=== PATIENT | male | born 1960 | race Caucasian/White ===

== ENCOUNTER 2017-03-21 22:02 | Inpatient (IN) | payer OTHER ==
[~2017-03-21] VITALS: Ht 175.3 cm; Wt 158.8 kg
--- NOTE | ~2017-03-21 | 2DMMODE ---
[facility] [address] [place] [address] 2 D/M-MODE ECHOCARDIOGRAM Name: KITA BAKER Room #: 421-P ADM IN M.R.#: [id number] Admission: 03/22/17 Attend Phys: Mariusz Franklin Discharge: Date of : 64 Date of Service: 03/22/17 [facility] [place] [facility] [place] Report #: [id number] THIS REPORT FOR: //name// APPROVED REPORT Study performed: 03/22/2017 07:16:42 EXAM: Comprehensive 2D, Doppler, and color-flow Echocardiogram Patient Location: Bedside Room #: 421 Status: routine Other Information Study Quality: Adequate Indications Congestive Heart Failure Echo Enhancing Agent Indication: Endocardial border delineation Agent(s) / Amount(s) Used: Definity 2 cc 2D Dimensions LVEF(%): 58.26 (>50%) IVSd: 10.04 (7-11mm) LVOT Diam: 26.84 (18-24mm) LVDd: 53.67 mm PWd: 10.64 (7-11mm) Ascending Ao: 34.46 (22-36mm) LVDs: 37.01 (25-40mm) Aortic Root: 33.12 mm Mendes's LVEF: 58.26 % Aortic Valve AoV Peak Jose.: 1.56 m/s AO Peak Gr.: 9.77 mmHg LVOT Max P.11 mmHg LVOT Max V: 1.13 m/s DELIO Vmax: 4.09 cm2 Mitral Valve E/A Ratio: 1.3 MV Decel. Time: 228.47 ms MV E Max Jose.: 1.03 m/s MV A Jose.: 0.82 m/s MV PHT: 66.26 ms IVRT: 92.27 ms [facility] [place] [address] 2 D/M-MODE ECHOCARDIOGRAM Name: KITA BAKER Room #: 421-P [facility] IN ..#: [id number] Admission: 03/22/17 Attend Phys: Mariusz Franklin Discharge: Date of : 64 Date of Service: 03/22/17 [facility] [place] [facility] Report #: [id number] Pulmonary Valve PV Peak Jose.: 1.07 m/s PV Peak Gr.: 4.57 mmHg Pulmonary Vein P Vein S: 0.35 m/s P Vein A: 0.27 m/s P Vein D: 0.21 m/s P Vein A Dur.: 110.7 msec P Vein S/D Ratio: 1.67 Tricuspid Valve TR Peak Jose.: 2.78 m/s TR Peak Gr.: 30.91 mmHg Left Ventricle The left ventricle is normal size. Regional wall motion is not well visualized but grossly normal. There is normal left ventricular wall thickness. The left ventricular systolic function is normal. The left ventricular ejection fraction is within the normal range. LVEF is 55-60%. Right Ventricle The right ventricle is normal size. The right ventricular systolic function is normal. Atria The left atrium size is normal. The right atrium size is normal. Aortic Valve The aortic valve is grossly normal in structure. No aortic regurgitation is present. There is no aortic valvular stenosis. Mitral Valve The mitral valve is grossly normal in structure. There is no mitral valve regurgitation noted. No evidence of mitral valve stenosis. Tricuspid Valve The tricuspid valve is normal in structure. There is trace tricuspid regurgitation. The right atrial pressure is estimated at mmHg. There is mild pulmonary hypertension. The estimated PAP was 31 mmHg. Plus the right atrial pressure. Pulmonic Valve The pulmonary valve is normal in structure. There is no pulmonic valvular regurgitation. [facility] [address] [place] [address] 2 D/M-MODE ECHOCARDIOGRAM Name: KITA BAKER Room #: 421-P [facility] IN M.R.#: [id number] Admission: 03/22/17 Attend Phys: Mariusz Franklin Discharge: Date of : 64 Date of Service: 03/22/17 1007 Report #: [id number] Great Vessels The aortic root is normal in size. IVC is not well visualized. Pericardium There is no pericardial effusion. <Conclusion> Very limited study The left ventricular systolic function is normal. Regional wall motion is not well visualized but grossly normal. LVEF 55-60%. The aortic valve is grossly normal in structure. No aortic regurgitation or stenosis The mitral valve is grossly normal in structure. No mitral valve regurgitation noted. Pulmonary artery pressure could not be reliably ascertained There is no pericardial effusion. <ELECTRONICALLY SIGNED> By: Shawn Lang MD, FACC 03/22/17 1007 1007 1007 Shawn Lang MD, FACC /INF
--- NOTE | ~2017-03-21 | EKG ---
[address] [place] [address] ELECTROCARDIOGRAM REPORT Name: KITA BAKER Room #: 421-[facility] IN M.R.#: [id number] Admission: 03/22/17 Attend Phys: Mariusz Salgado Discharge: 03/24/17 Date of : 64 Report #: [id number] THIS REPORT FOR: //name// [facility] ED Test Date: 2017-03-21 Test Time: 22:27:42 Pat Name: KITA BAKER Department: Room: 421 Gender: M Stars Analytical Lead: [id number] : 1960 Requested By: Alyse Rodriguez Order Number: [id number] MD: Shawn Lang Measurements Intervals [place] Rate: 92 P: -9 MT: 143 QRS: 95 QRSD: 119 T: -1 QT: 382 QTc: 473 Interpretive Statements Sinus rhythm Nonspecific intraventricular conduction delay No previous ECG available for comparison Electronically Signed On 03-25-2017 12:55:07 CDT by Shawn Lang [email or web address] <ELECTRONICALLY SIGNED> By: Shawn Lang MD, [facility] 03/25/17 1255 D: [id number] 26 Shawn Lang MD, FAC /EPI
[2017-03-21 22:04] VITALS: BP 145/80
[2017-03-21] MEDS ORDERED: OTEZLA1 EAC1 PO (22:55)
[2017-03-21 22:56] LABS: HEMATOCRIT 38.5 % (42.0-52.0); HEMOGLOBIN 12.8 gm/dL (14.0-18.0); MCH 30.5 pg (26.0-34.0); MCHC 33.3 g/dL (28.0-37.0); MCV 91.7 fL (80.0-100.0); PLATELET COUNT 102 thou/uL (150-400); RDW 14.8 % (10.5-14.5); WBC 14.8 thou/uL (4.0-11.0)
[2017-03-21 22:58] LABS: MANUAL DIFF YES
[2017-03-21 23:05] LABS: ANION GAP 7 mmol/L (7-16); BUN 9 mg/dL (7-18); CALCIUM 9.1 mg/dL (8.5-10.1); CHLORIDE 99 mmol/L (98-107); CO2 26 mmol/L (21-32); CREATININE 1.1 mg/dL (0.7-1.3); GLUCOSE 107 mg/dL (74-106); POTASSIUM 4.5 mmol/L (3.5-5.1); SODIUM 132 mmol/L (136-145)
[2017-03-21 23:17] LABS: NT-PRO BRAIN NAT PEPTIDE 604 pg/mL (<300); TROPONIN-I < 0.04 ng/mL (<0.04-0.07)
[2017-03-21 23:40] LABS: ABSOLUTE NEUTROPHILS 12.7 thou/uL (1.4-8.2); PLATELET ESTIMATE NORMAL; TOTAL CELL COUNT 100
[2017-03-22 02:29] VITALS: BP 110/38
[2017-03-22 04:56] VITALS: BP 109/73
[2017-03-22 07:52] VITALS: BP 96/48
[2017-03-22 08:17] LABS: HEMATOCRIT 35.7 % (42.0-52.0); HEMOGLOBIN 11.7 gm/dL (14.0-18.0); MCH 30.6 pg (26.0-34.0); MCHC 32.8 g/dL (28.0-37.0); MCV 93.1 fL (80.0-100.0); RBC 3.83 mil/uL (4.50-6.00); RDW 15.1 % (10.5-14.5); WBC 13.2 thou/uL (4.0-11.0)
[2017-03-22 08:29] LABS: CALCIUM 8.8 mg/dL (8.5-10.1); CREATININE 1.1 mg/dL (0.7-1.3)
[2017-03-22 08:35] LABS: POTASSIUM 3.5 mmol/L (3.5-5.1)
[2017-03-22 15:38] VITALS: BP 86/40
[2017-03-22 20:00] VITALS: BP 110/66
[2017-03-23 04:00] VITALS: BP 96/45
[2017-03-23 07:33] VITALS: BP 97/62
[2017-03-23 15:10] VITALS: BP 108/50
[2017-03-23 20:00] VITALS: BP 105/59
[2017-03-24 04:00] VITALS: BP 111/61
[2017-03-24 05:11] LABS: ALBUMIN 2.2 g/dL (3.4-5.0); CALCIUM 8.2 mg/dL (8.5-10.1); CREATININE 1.1 mg/dL (0.7-1.3); POTASSIUM 3.6 mmol/L (3.5-5.1)
[2017-03-24 07:18] VITALS: BP 113/66
[2017-03-24] MEDS ORDERED: LASIX 40 MG TAB40 M2 PO (08:40)
[2017-03-24] MEDS ORDERED: KLOR-CON 1010 MEQ PO (08:40)
[2017-03-24] MEDS ORDERED: CEFUROXIME500 MG PO (08:41)
[2017-03-24 09:19] VITALS: BP 113/66
== END 2017-03-24 14:59 | disposition home or self-care (01) | DRG 603 ==
LOC: ER 22:02 → 4E 03-22 00:39 → EROBS 03-22 00:39 → 4E 03-22 02:34
PROVIDERS: Emergency Medicine; Hospitalist; Nurse Practitioner Family
DX: L03.115 Cellulitis of right lower limb (principal); E87.2 Acidosis; R60.1 Generalized edema; L40.9 Psoriasis, unspecified; I50.9 Heart failure, unspecified; F12.90 Cannabis use, unspecified, uncomplicated; F17.220 Nicotine dependence, chewing tobacco, uncomplicated; Z79.899 Other long term (current) drug therapy
CPT/HCPCS: 10084; 50455

== ENCOUNTER 2020-10-09 12:18 | Inpatient (IN) | payer OTHER ==
[~2020-10-09] VITALS: Ht 175.3 cm; Wt 189.6 kg
[~2020-10-09 12:18] MED LIST: CEFUROXIME500 MG PO; KLOR-CON 1010 MEQ PO; LASIX 40 MG TAB40 M2 PO; OTEZLA1 EAC1 PO
[2020-10-09 12:24] VITALS: BP 163/66
[2020-10-09 13:00] LABS: ABSOLUTE NEUTROPHILS 8.8 thou/uL (1.4-8.2); BASOPHILS 0.7 % (0.0-2.0); EOSINOPHILS 1.3 % (0.0-3.0); HEMATOCRIT 23.3 % (42.0-52.0); HEMOGLOBIN 7.1 gm/dL (14.0-18.0); LYMPHOCYTES 3.8 % (24.0-44.0); MCH 27.7 pg (26.0-34.0); MCHC 30.7 g/dL (28.0-37.0); MCV 90.3 fL (80.0-100.0); MONOCYTES 8.2 % (1.0-8.0); PLATELET COUNT 129 thou/uL (150-400); RBC 2.58 mil/uL (4.50-6.00); WBC 10.3 thou/uL (4.0-11.0)
[2020-10-09 13:14] LABS: CALCIUM 8.2 mg/dL (8.5-10.1); CREATININE 0.9 mg/dL (0.7-1.3); POTASSIUM 4.3 mmol/L (3.5-5.1)
[2020-10-09 13:20] LABS: ALBUMIN 2.6 g/dL (3.4-5.0); TOTAL PROTEIN 8.1 g/dL (6.4-8.2)
--- NOTE | 2020-10-09 14:58 | NUR ---
MOVED PT TO HOSPITAL BED FOR COMFORT.
[2020-10-09 16:30] LABS: HEMATOCRIT 20.3 % (42.0-52.0)
[2020-10-09 16:33] LABS: HEMOGLOBIN 6.2 gm/dL (14.0-18.0)
[2020-10-09 17:57] LABS: URINE BILIRUBIN NEGATIVE (Negative); URINE BLOOD NEGATIVE (Negative); URINE CLARITY CLEAR; URINE COLOR YELLOW; URINE GLUCOSE-RANDOM* NEGATIVE (Negative); URINE KETONES NEGATIVE (Negative); URINE LEUKOCYTES-REFLEX NEGATIVE (Negative); URINE NITRITE-REFLEX NEGATIVE (Negative); URINE PROTEIN (DIPSTICK) NEGATIVE (Negative); URINE SPECIFIC GRAVITY 1.015 (1.005-1.035); URINE UROBILINOGEN 0.2 E.U./dl (0.2-1.0)
[2020-10-09 18:00] VITALS: BP 115/79
--- NOTE | 2020-10-09 18:12 | NUR ---
PT ARRIVED TO ROOM
[2020-10-09 18:15] VITALS: BP 145/65
--- NOTE | 2020-10-09 21:05 | NUR ---
PT INFORMED PROVIDER AND GI DR WANT PT TO REMAIN NPO UNTIL FURTHER EVALUATION FOR POSSIBLE GI BLEED. BOTH PROVIDERS INFORMED PT HAD COLONOSCOPY SCHEDULED 10/22/20 AT [facility]. PT DENIES BLOODY STOOL OR N/V. PT REQUESTING TO EAT OR DRINK, PT INFORMED OF CONCERNS RE POTENTIAL ULCERS, PERFORATIONS. PT STATED HE IS GOING TO DRINK ANYWAY. PT HAS CONSENTED FOR UNIT OF RBC. PROVIDER AUDIO VISUAL PROJECT MANAGER NOTIFIED PT REFUSING TO REMAIN NPO AND PLANS ON DRINKING WATER. PTS SON CALLED AND WAS GIVEN UPDATE AND STATED HE WILL TALK TO HIS FATHER RE COMPLIANCE. PT RESTING IN BED. EDUCATED RE FALLS PROTOCOL. PT HAS CANE AT BEDSIDE. O2 PER NC, LUNGS DIMINISHED. NOTED SOA WITH CONVERSATION. OBESE, BLE EDEMA +2. ATTEMPT TO PLACE CATHERER, SUPERVISOR WINTER ATTAINING SMALLER VENEZUELAN CATHETER. PT HAS COMPUTER, GLASSES, CELL PHONE AND FERRIS WHEEL ATTENDANT AND HOME MEDS IN ROOM. PT EDUCATED TO NOT USE HOME MEDS AND TO HAVE THEM SENT HOME WITH HIS SON. IV ANTIBIOTICS INFUSING.
[2020-10-09 22:28] VITALS: BP 112/60
[2020-10-09 22:44] VITALS: BP 113/69; BP 138/64
--- NOTE | 2020-10-09 23:50 | NUR ---
SEVERAL ATTEMPTS TO PLACE ADDITIONAL IV, CHARGE AND SPA ATTENDANT NOTIFIED. AFTER BLOOD COMPLETE WILL START ON ANTIBIOTICS ORDERED.
[2020-10-10 01:10] VITALS: BP 113/69
[2020-10-10 03:55] LABS: HEMATOCRIT 22.8 % (42.0-52.0); HEMOGLOBIN 7.1 gm/dL (14.0-18.0)
[2020-10-10 03:58] LABS: CALCIUM 7.9 mg/dL (8.5-10.1); CREATININE 0.9 mg/dL (0.7-1.3); POTASSIUM 4.4 mmol/L (3.5-5.1)
[2020-10-10 08:10] VITALS: BP 133/58
--- NOTE | 2020-10-10 10:16 | EKG ---
[address] [address] ELECTROCARDIOGRAM REPORT Name: KITA BAKER Room #: 363-P ADM IN M.R.#: [id number] Admission: 10/09/20 Attend Phys: Erasmo Rordiguez MD Discharge: Date of : 64 Report #: [id number] [facility] ED Test Date: 2020-10-09 Test Time: 13:49:51 Pat Name: KITA BAKER Department: Room: Replaced by [facility] Gender: M Stripe Matcher: malena : 1960 Requested By: Easton Shukla Order Number: [id number] MD: Delta Leary Measurements Intervals [place] Rate: 103 P: 33 GA: 150 QRS: 83 QRSD: 110 T: 16 QT: 363 QTc: 475 Interpretive Statements Sinus tachycardia Baseline wander in lead(s) V2 Compared to ECG 03/21/2017 22:27:42 Electronically Signed On 10-10-2020 10:16:14 OIL TESTER by Delta Leary [email or web address] <ELECTRONICALLY SIGNED> By: Delta Leary MD 10/10/20 1016 1349 1349 MD PRASANTH Schuster
[2020-10-10 12:40] VITALS: BP 133/81
[2020-10-10 16:05] VITALS: BP 124/74
[2020-10-10 19:17] VITALS: BP 139/65
--- NOTE | 2020-10-11 00:03 | NUR ---
PT WATCHING FOOTBALL, SMILING TALKATIVE. NOT SOA WITH CONVERSATION. O2 PER NC. LUNGS DIMINISHED. IVF INTACT. PT DISCUSSED NOT WANTING TO BE ON A HEART HEALTHY DIET SINCE HIS BP AND CHOLESTEROL ARE WNL.
[2020-10-11 04:00] VITALS: BP 136/85
[2020-10-11 05:07] LABS: FIBRINOGEN 290.9 mg/dL (210-360); INR 1.2; PROTIME 12.7 Seconds (9.3-11.4)
[2020-10-11 05:13] LABS: ABSOLUTE NEUTROPHILS 8.5 thou/uL (1.4-8.2); BASOPHILS 0.4 % (0.0-2.0); EOSINOPHILS 0.6 % (0.0-3.0); HEMATOCRIT 23.8 % (42.0-52.0); HEMOGLOBIN 7.2 gm/dL (14.0-18.0); LYMPHOCYTES 7.9 % (24.0-44.0); MCH 27.6 pg (26.0-34.0); MCHC 30.4 g/dL (28.0-37.0); MCV 90.8 fL (80.0-100.0); PLATELET COUNT 129 thou/uL (150-400); POLYS 80.1 % (36.0-66.0); RBC 2.62 mil/uL (4.50-6.00); RDW 18.6 % (10.5-14.5); WBC 10.6 thou/uL (4.0-11.0)
[2020-10-11 05:49] LABS: ALBUMIN 2.4 g/dL (3.4-5.0); CALCIUM 8.3 mg/dL (8.5-10.1); DIRECT BILIRUBIN 0.5 mg/dL (<0.1-0.2); PHOSPHORUS 3.2 mg/dL (2.5-4.9); POTASSIUM 4.7 mmol/L (3.5-5.1); TOTAL BILIRUBIN 1.1 mg/dL (0.2-1.0); TOTAL PROTEIN 7.8 g/dL (6.4-8.2)
[2020-10-11 07:30] VITALS: BP 130/69
[2020-10-11 11:41] VITALS: BP 153/68
[2020-10-11 11:48] VITALS: BP 139/70
--- NOTE | 2020-10-11 13:49 | NUR ---
INITIAL ASSESSMENT: Received consult. SW reviewed chart and spoke with nursing and attending physician. Pt was admitted from home due to pneumonia/sepsis. Pt placed in Enhanced Isolation due to COVID-19. Pt is afebrile and on 2L of O2. PT is on IV abx, IV steroids and IV lasix. Pt has started Remdesivir and Ivermectin. GI consulted due to anemia. SW spoke with pt via phone. Introduced role of SW. Pt is alert/orientated x 4. Pt lives at home alone. Prior to admission, pt was independent with ADLs. Has a cane to use as needed. Pt states he sees Kelley Trejo at the [facility]. Pt's son, Colt, is supportive. Pt requests SW contact Colt to discuss discharge needs. SW left voice message for Colt. Plan is for pt to discharge home when medically stable. SW is following to assist as needed with discharge planning.
--- NOTE | 2020-10-11 13:52 | NUR ---
ADMINISTERED IV LASIX TO PT. PT ASKED TO SIT ON SIDE OF BED SO HE CAN USE THE URINAL EASIER. ASSISTED PT TO SIDE OF BED, CALL LIGHT AND URINALS WITHIN REACH. PT THEN ASKED FOR CERTAIN ITEMS OFF HIS BEDSIDE TABLE INCLUDING A CAN OF CHEWING TOBACCO. THIS RN INFORMED PT THIS IS A TOBACCO FREE CAMPUS AND HE WILL NOT BE ALLOWED TO USE PRODUCT WHILE INPT. PT STATED "AT LEAST I WAS HONEST". THIS RN INQUIRED HOW MUCH HE CONSUMES IN WHICH PT STATED "I ONLY USE ONE CAN OF CHEW EVERY FOUR DAYS". PT THREW AWAY CAN IN TRASH. RN WILL INFORM MD TO SEE IF NICOTINE PATCH IS NEEDED. PT REFUSED TO LAY IN BED, REQUESTED TO SIT ON THE SIDE OF BED.
--- NOTE | 2020-10-11 14:55 | NUR ---
PT RECEIVED BAG OF SUPPLIES DELIVERED FROM FAMILY. BAG WAS ON BEAN DUMPER WHEN THIS RN NOTICED IT. BAG CONTAINS A NEW CAN OF CHEWING TOBACCO, BEEF JERKY, COLA, OREO COOKIES, HYDRATION/ELECTROLYTE DRINK, AND ORANGE JUICE.
--- NOTE | 2020-10-11 15:01 | NUR ---
THIS RN PLACED CALL TO PT FAMILY CONTACT, JENNIFER BAKER, SON, ABOUT BAG OF SUPPLIES LEFT FOR PT. THIS RN INFORMED SON THIS IS A TOBACCO FREE CAMPUS AND HIS FATHER IS ON A HEART HEALTHY DIET AT THIS TIME. THIS RN INFORMED FAMILY MEMBER THE BAG OF SUPPLIES WILL BE AT THE ER NETWORKING ADMINISTRATOR SO HE CAN PICK THEM UP AT HIS LEISURE. FAMILY MEMBER STATED TO JUST THROW SUPPLIES AWAY. THIS RN WILL SEND DOWN TO ER NETWORKING ADMINISTRATOR IN CASE FAMILY MEMBER CHANGES THEIR MIND. PT LABEL ON BAG.
[2020-10-11 15:59] VITALS: BP 114/61
[2020-10-11 20:56] VITALS: BP 122/62
[2020-10-12 05:03] VITALS: BP 122/54
--- NOTE | 2020-10-12 06:05 | NUR ---
Pt. expressed frustrations about his diet order and some orders that was not done during the day. Listened to his concerns and gave emotional support. He stated he slept well last night.Got up with assist to bariatric commodex 2 this shift. Maintaining O2 sat in the upper 90's on 2L/NC. No respiratory distress. Cont.on enhanced precaution , afebrile. No signs of active bleeding. Attempted to draw am labs from midline this am , got blood return but not enough for am lab draws. Lab notified so they can draw.
[2020-10-12 07:59] VITALS: BP 120/75
[2020-10-12 08:22] LABS: ALBUMIN 2.6 g/dL (3.4-5.0); CALCIUM 8.9 mg/dL (8.5-10.1); DIRECT BILIRUBIN 0.5 mg/dL (<0.1-0.2); PHOSPHORUS 4.4 mg/dL (2.6-4.7); POTASSIUM 4.4 mmol/L (3.5-5.1); TOTAL PROTEIN 8.1 g/dL (6.4-8.2)
[2020-10-12 11:41] VITALS: BP 121/64
--- NOTE | 2020-10-12 13:32 | NUR ---
CARE ASSUMMED AT 0700, PT ALERT AND ORIENTED X4, DENIES ANY PAIN. PT IS ON 2L OF OXYGEN. PT IS UP WITH ONE ASSIT TO COMMODE. USES THE URINAL. PT IS FRUSTRATED ABOUT DELAY OF HIS ECHO. ECHO PAGED AND THEY SAID, THEY HAVE TO A BUSY SCHEDULE, AND WILL EGT TO PT ALEJANDRO, MADE PT AWARE. DENIES ANY NEEDS ЕЛЕНА. WILL CONTINUE TO MONITOR
[2020-10-12 15:08] LABS: HEMATOCRIT 25.9 % (42.0-52.0); HEMOGLOBIN 7.7 gm/dL (14.0-18.0); MCH 27.7 pg (26.0-34.0); MCHC 29.7 g/dL (28.0-37.0); MCV 93.4 fL (80.0-100.0); RBC 2.77 mil/uL (4.50-6.00); RDW 19.5 % (10.5-14.5); WBC 6.5 thou/uL (4.0-11.0)
[2020-10-12 15:43] VITALS: BP 105/51
[2020-10-12 20:55] VITALS: BP 104/59
[2020-10-13 05:21] VITALS: BP 109/64
[2020-10-13 06:23] LABS: ALBUMIN 2.3 g/dL (3.4-5.0); CALCIUM 8.7 mg/dL (8.5-10.1); DIRECT BILIRUBIN 0.3 mg/dL (<0.1-0.2); PHOSPHORUS 3.8 mg/dL (2.6-4.7); POTASSIUM 4.2 mmol/L (3.5-5.1); TOTAL BILIRUBIN 0.7 mg/dL (0.2-1.0); TOTAL PROTEIN 7.6 g/dL (6.4-8.2)
--- NOTE | 2020-10-13 08:08 | NUR ---
Pt. stated he slept well during the night. He is in a better mood last night and did not verbalized anymore concerns. He stated he is now happy that he's back on a regular diet. Being on a heart healthy diet frustrated him. Voding per urinal , lasix IV given this am. Bed alarm on for safety. No signs of active bleeding.
[2020-10-13 11:34] VITALS: BP 127/62
--- NOTE | 2020-10-13 11:47 | 2DMMODE ---
[facility] [place] [address] 2 D/M-MODE ECHOCARDIOGRAM Name: KITA BAKER Room #: 363-P ADM IN M.R.#: [id number] Admission: 10/09/20 Attend Phys: Erasmo Rodriguez MD Discharge: Date of : 64 Report #: [id number] THIS REPORT FOR: cc: Andrew Miguel MD, Philip E. MD Lammoglia, Francisco J. MD ~ APPROVED REPORT Study performed: 10/13/2020 10:36:09 EXAM: Comprehensive 2D, Doppler, and color-flow Echocardiogram Patient Location: Bedside Room #: 363 Status: routine BSA: 2.81 HR: 68 bpm BP: 109/64 mmHg Rhythm: NSR Other Information Study Quality: Technically DifficultTechnically Limited Technically limited study due to body habitus, inability to position patient. Indications Dyspnea Covid positive, Morbid obesity 2D Dimensions RVDd: 64.09 mm IVC: 21.00 mm Tricuspid Valve TR Peak Jose.: 3.62 m/s TR Peak Gr.: 52.49 mmHg PA Pressure: 62.00 mmHg Left Ventricle The left ventricle is normal size. There is normal left ventricular wall thickness. The left ventricular systolic function is normal. The left ventricular ejection fraction is within the normal range. LVEF is 55-60%. The left ventricular diastolic function appears normal. [facility] [place] [address] 2 D/M-MODE ECHOCARDIOGRAM Name: KITA BAKER Room #: 363-P ADM IN M.R.#: [id number] Admission: 10/09/20 Attend Phys: Dave Hilliard Discharge: Date of : 64 Report #: [id number] Right Ventricle Right ventricle is dilated. The right ventricular systolic function is normal. Atria Left atrium is at the upper limits of normal. Right atrium is dilated. Aortic Valve The aortic valve is normal in structure. No aortic regurgitation is present. There is no aortic valvular stenosis. Mitral Valve The mitral valve is normal in structure. Trace mitral regurgitation. No evidence of mitral valve stenosis. Tricuspid Valve The tricuspid valve is normal in structure. There is moderate tricuspid regurgitation. Estimated PAP 62 mmHg. There is moderate pulmonary hypertension. Pulmonic Valve Pulmonic valve is not well visualized. Great Vessels The aortic root is normal in size. IVC is dilated and collapses <50% with inspiration. Pericardium There is no pericardial effusion. <Conclusion> The left ventricle is normal size. LVEF is 55-60%. Right ventricle is dilated. The right ventricular systolic function is normal. Left atrium is at the upper limits of normal. Right atrium is dilated. The aortic valve is normal in structure. The mitral valve is normal in structure. Trace mitral regurgitation. The tricuspid valve is normal in structure. There is moderate tricuspid regurgitation. Estimated PAP 62 mmHg. There is moderate pulmonary hypertension. Pulmonic valve is not well visualized. [facility] [address] [place] [address] 2 D/M-MODE ECHOCARDIOGRAM Name: KITA BAKER Room #: 363-P ADM IN M.R.#: [id number] Admission: 10/09/20 Attend Phys: Dave Hilliard Discharge: Date of : 64 Report #: [id number] The aortic root is normal in size. There is no pericardial effusion. <ELECTRONICALLY SIGNED> By: Neo Jefferson MD 10/13/20 1146 1146 114 Neo Jefferson MD /INF
--- NOTE | 2020-10-13 14:37 | NUR ---
PT CARE ASSUMED AT 0700, PT STATED HE HAD A GOOD NIGHT. ALERT AND ORIENTED X4. ON ROOM AIR NOW, NO SIGNS OF DISTRESS NOTED.ECHO COMPLETED. USES THE URINAL AND UP TO BSC WITH CANE. ANTICIPATING FOR DISCHARGE TMR AFTER REMEDESVIR. PT PROGRESSING TOWARDS CARE.
--- NOTE | 2020-10-13 15:50 | NUR ---
SIVAN reviewed chart and spoke with nursing and attending physician. Pt remains in Enhanced Isolation due to COVID. Pt is afebrile and on 2L of O2. Pt is on IV abx, IV steroids, IV lasix. Pt to complete course of Remdesivir. Pt to have echo today. Discharge home is anticipated for tomorrow. Pt was not on O2 prior to admission. SIVAN is following to assist as needed with discharge planning.
[2020-10-13 15:56] VITALS: BP 139/68
[2020-10-13 21:12] VITALS: BP 115/62
--- NOTE | 2020-10-14 00:04 | NUR ---
PT ALERT AND ORIENTED X4 VSS AFEBRILE. ZOSYN DCD ORDERED. NO C/O PAIN. NO SOA NOTED. PT RESTING QUIETLY. BED DOWN. CALL LIGHT IN REACH. SIDE RAILS UP X2. PT PROGRESSING WELL TOWARDS D/C GOALS. PT VOIDING LG AMTS CLEAR YELLOW URINE AFTER LASIX.
[2020-10-14 03:51] VITALS: BP 149/76
--- NOTE | 2020-10-14 06:18 | NUR ---
PT RESTING QUIETLY. NO S/S RESPIRATORY DISTRESS. VOIDS PER URINAL CLEAR YELLOW URINE . LASIX GIVEN.
[2020-10-14 06:34] LABS: ALBUMIN 2.3 g/dL (3.4-5.0); CALCIUM 8.9 mg/dL (8.5-10.1); CREATININE 0.9 mg/dL (0.7-1.3); DIRECT BILIRUBIN 0.3 mg/dL (<0.1-0.2); PHOSPHORUS 3.8 mg/dL (2.6-4.7); POTASSIUM 4.3 mmol/L (3.5-5.1); TOTAL BILIRUBIN 0.9 mg/dL (0.2-1.0); TOTAL PROTEIN 7.9 g/dL (6.4-8.2)
[2020-10-14 08:44] VITALS: BP 132/67
[2020-10-14] MEDS ORDERED: PEPCID20 MG PO (10:18)
[2020-10-14] MEDS ORDERED: LASIX 40 MG TAB40 MG PO (10:18)
[2020-10-14] MEDS ORDERED: CEFDINIR300 MG PO (10:18)
[2020-10-14] MEDS ORDERED: ACEROLA C500 MG PO (10:18)
[2020-10-14] MEDS ORDERED: ZINC SULFATE 2220 MG PO (10:18)
[2020-10-14 11:50] VITALS: BP 132/67
--- NOTE | 2020-10-14 12:32 | NUR ---
PT GOT HIS LAST REMDESVIR TODAY, D/C SOON. ON ROOM AIR NO SIGNS OF DISTRESS. DENIES ANY NEEDS. DISCHARGE PAPERWORK AND NEW MEDICATION INFORMATION GIVEN TO PT, PT STATE UNDERSTANDING OF DISCHARGE INSTRUCTION AND MED MED. IV TAKEN OUT. WAITING FOR PT RIDE.
--- NOTE | 2020-10-14 13:21 | NUR ---
PT DISCHARGE, ALL BELONGINGS PACKED AND SENT DOWN WITH PT.
--- NOTE | 2020-10-14 14:23 | NUR ---
DISCHARGE NOTE: SW reviewed chart and spoke with nursing and attending physician. Pt is medically stable for discharge home today following final dose of Remdesivir. Pt is on room air. SW placed call to pt's room earlier today. No answer. Pt's family provided transportation home. No discharge needs identified at this time, but is available to assist should needs arise.
== END 2020-10-14 13:43 | disposition home or self-care (01) | DRG 871 ==
LOC: ER 12:18 → EROBS 16:53 → 3W 16:53
PROVIDERS: Emergency Medicine; Nurse Practitioner; Nurse Practitioner Family; Specialist; ADMIT Hospitalist; ATTEND Hospitalist
PROC: 30233N1 Transfusion of Nonautologous Red Blood Cells into Peripheral Vein, Percutaneous Approach (ICD-10-PCS; principal; 2020-10-09)
PROC: XW033E5 Introduction of Remdesivir Anti-infective into Peripheral Vein, Percutaneous Approach, New Technology Group 5 (ICD-10-PCS; 2020-10-10)
PROC: 05HF33Z Insertion of Infusion Device into Left Cephalic Vein, Percutaneous Approach (ICD-10-PCS; 2020-10-11)
DX: A41.9 Sepsis, unspecified organism (principal); J12.82 Pneumonia due to coronavirus disease 2019; J96.01 Acute respiratory failure with hypoxia; Z68.44 Body mass index [BMI] 60.0-69.9, adult; L40.9 Psoriasis, unspecified; D64.9 Anemia, unspecified; E11.9 Type 2 diabetes mellitus without complications; I10 Essential (primary) hypertension; D69.6 Thrombocytopenia, unspecified; E66.01 Morbid (severe) obesity due to excess calories; I27.21 Secondary pulmonary arterial hypertension; Z79.899 Other long term (current) drug therapy
CPT/HCPCS: 10879; 27000

== ENCOUNTER → 2020-11-23 | Outpatient (CLI) | payer OTHER ==
[~2020-11-23] VITALS: Ht 177.8 cm; Wt 186.0 kg
[~2020-11-23] MED LIST changes: +ACEROLA C500 MG PO; +CEFDINIR300 MG PO; +LASIX 40 MG TAB40 MG PO; +PEPCID20 MG PO; +ZINC SULFATE 2220 MG PO
--- NOTE | 2020-11-29 18:31 | PATH ---
[facility] [place] [address] PATHOLOGY RPT PROCEDURE Name: MIGUEL ANGEL BAKER Room #: REG CL MHugoR.#: [id number] Admission: 11/23/20 Date of : 64 Discharge: Report #: [id number] Path Case #: [id number] [facility] Accession Number: [id number] . 01 Material submitted: . PART A: duodenum - BIOPSY DUODENUM PART B: stomach - BIOPSY ANTRUM PART C: esophagus - BIOPSY DISTAL ESOPHAGUS. Modifiers: distal PART D: splenic flexure - BIOPSY SPLENIC FLEXURE POLYP PART E: sigmoid colon - SIGMOID COLON POLYP . 01 Clinical history: . A: R/O CELIAC B: R/O H PYLORI C: R/O LANGLEY'S ANEMIA EGD AND COLONOSCOPY . 02 Diagnosis: A. Small bowel mucosa, duodenum to rule out celiac, endoscopic biopsy; - No diagnostic abnormalities present. - Negative for villous blunting or increase in intraepithelial lymphocytes. . B. Gastric mucosa, antrum to rule out H. pylori, endoscopic biopsy; - Mild to moderate reactive gastropathy. - Negative for intestinal metaplasia or atrophy. - Negative for Helicobacter pylori (properly controlled immunohistochemical stain performed). . C. 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 - Negative for dysplasia. - Squamous mucosa with mild esophagitis. . D. Polyp, splenic flexure, endoscopic biopsy: - Tubular adenoma identified in multiple fragments. - Negative for high-grade dysplasia. . E. Polyp, sigmoid colon polyp, endoscopic biopsy: - Tubular adenoma. - Negative for high-grade dysplasia. - Cauterized mucosa showing unremarkable mucosa as well as tubular adenoma focally. . (IUV:telephone plant power operator; 11/29/2020) [facility] [address] [place] [address] PATHOLOGY RPT PROCEDURE Name: MIGUEL ANGEL BAKER Room #: REG CLI [facility].#: [id number] Admission: 11/23/20 Date of : 64 Discharge: Report #: [id number] Path Case #: [id number] MBR 11/29/2020 1412 Local . 02 Comment: C. The above diagnosis of Langley's esophagus is made due to presence of intestinal metaplasia and with the assumption that the biopsies were obtained from the columnar mucosa in the distal esophagus located at least 1 cm proximal to the top of the gastric folds as per the 2016 ACG guidelines. (IUV:telephone plant power operator; 11/29/2020) . 02 Electronically signed: . Emi Del Rio MD, Pathologist NPI- [id number] . 01 Gross description: . A. Received in formalin labeled "Miguel Angel Baker, BX duodenum rule out celiac" are 2 fragments of carranza-brown soft tissue measuring in aggregate 0.5 x 0.5 x 0.1 cm. The specimen is submitted entirely in A1. . B. Received in formalin labeled "Tabby, Miguel Angel, antrum rule out H. pylori" are 2 fragments of carranza-brown soft tissue measuring in aggregate 0.4 x 0.4 x 0.1 cm. The specimen is submitted entirely in B1. . C. Received in formalin labeled "Tabby, Miguel Angel, BX distal esophagus rule out Langley's" are 2 fragments of carranza-brown soft tissue measuring in aggregate 0.5 x 0.4 x 0.1 cm. The specimen is submitted entirely in C1. . D. Received in formalin labeled "Addi Bakerel, BX splenic flexure polyp" are multiple fragments of carranza-brown soft tissue measuring in aggregate 1.0 x 0.5 x 0.1 cm. The specimen is submitted entirely in D1. . E. Received in formalin labeled "Miguel Angel Baker, sigmoid colon polyp" is a carranza-brown polypoid portion of mucosa measuring 0.8 x 0.7 x 0.6 cm. The margin is inked and the specimen is bisected and submitted entirely in E1. ([facility] [place] 11/27/2020) [facility] 11/27/2020 1140 Local . 02 Pathologist provided ICD-10: K31.9, K22.70, K20.90, D12.5 . 02 CPT . 451950, 743038, 795166, 942851, 215140, [id number] Specimen Comment: A courtesy copy of this report has been sent to [phone] Specimen Comment: Report sent to Performed at: [address], [place], [place] [address] [address] [address] PATHOLOGY RPT PROCEDURE Name: GALILEOELIAZARUzairADDIMIGUEL ANGEL XAVIER Room #: REG [facility] M.R.#: [id number] Admission: 11/23/20 Date of : 64 Discharge: Report #: [id number] Path Case #: [id number] MD Jesus Almodovar MD Phone: [phone] Performed at: [address] [id number] MD Emi Del Rio MD Phone: [phone]
== END | disposition home or self-care (01) ==
LOC: GI 09:09
PROVIDERS: ATTEND Internal Medicine Gastroenterology
DX: D50.9 Iron deficiency anemia, unspecified (principal); D12.3 Benign neoplasm of transverse colon; D12.5 Benign neoplasm of sigmoid colon; K20.90 Esophagitis, unspecified without bleeding; K22.70 Barrett's esophagus without dysplasia; K31.9 Disease of stomach and duodenum, unspecified; K57.30 Diverticulosis of large intestine without perforation or abscess without bleeding; K64.8 Other hemorrhoids; K44.9 Diaphragmatic hernia without obstruction or gangrene; I89.0 Lymphedema, not elsewhere classified; D64.9 Anemia, unspecified; Z86.16 Personal history of COVID-19; Z98.890 Other specified postprocedural states; Z79.899 Other long term (current) drug therapy; Z90.49 Acquired absence of other specified parts of digestive tract
CPT/HCPCS: 62110; 62900

== ENCOUNTER 2021-04-04 09:52 | Inpatient (IN) | payer OTHER ==
[~2021-04-04] VITALS: Ht 175.3 cm; Wt 199.6 kg
--- NOTE | ~2021-04-04 | HC ---
[facility] [place] [address] CONSULTATION Name: KITA BAKER Room #: 363-P ADM IN M.R.#: [id number] Admission: 04/04/21 Attend Phys: Estevan Dang MD Discharge: Date of : 64 Report #: [id number] THIS REPORT FOR: cc: FAM - Family physician unknown FAM - Family physician unknown Arturo Heck MD ~ DATE OF SERVICE: 04/07/2021 WOUND CARE CONSULTATION PERSONAL PHYSICIAN: Not on staff. CHIEF COMPLAINT: Bilateral lower extremity lymphedema. HISTORY OF PRESENT ILLNESS: This is a 60-year-old white male with a chronic history of psoriasis, lymphedema, and morbid obesity, who was admitted for increasing shortness of breath. The patient states that he is normally seen in the lymphedema clinic and has wraps placed weekly. The patient was also found on admission to have right lower lobe pneumonia. We have been asked to follow the patient for the lower extremity edema. The patient states this has once again been chronic. The patient does have lymphedema pumps at home, but he has not been using them recently. PAST MEDICAL HISTORY: Significant for chronic low back pain, chronic lymphedema, bilateral lower extremities; psoriasis, COVID pneumonitis, obesity, anemia. CURRENT MEDICATIONS: Multiple, I reviewed the patient's medication list. DRUG ALLERGIES: None. SOCIAL HISTORY: The patient does not use tobacco. Drinks alcohol occasionally. FAMILY HISTORY: Not pertinent to current medical condition. REVIEW OF SYSTEMS: CONSTITUTIONAL: The patient had fevers and chills upon admission, but has not in the past 24 hours. EYES: No complaints. EARS, NOSE AND THROAT: No complaints. CARDIAC: The patient has chronic lower extremity edema, but denies chest pain or palpitations. RESPIRATORY: The patient has shortness of breath with associated cough and dyspnea on exertion. GASTROINTESTINAL: The patient denies nausea, vomiting, abdominal pain. GENITOURINARY: The patient denies urgency or frequency. [facility] [address] [place] [address] CONSULTATION Name: KITA BAKER Room #: 363-P [facility] IN .R.#: [id number] Admission: 04/04/21 Attend Phys: Estevan Dang MD Discharge: Date of : 64 Report #: [id number] MUSCULOSKELETAL: No complaints. SKIN: The patient has chronic stasis dermatitis with associated secondary lymphedema of bilateral lower extremities. PHYSICAL EXAMINATION: VITAL SIGNS: Temperature 36.7, pulse 56, respirations 18, BP 104/42. GENERAL: This is a morbidly obese white male who is in no obvious distress. HEENT: Normocephalic, atraumatic. Mucous membranes are somewhat dry. Pupils are round. Sclerae white. NECK: Without JVD. LUNGS: Slight diminished breath sounds heard throughout. HEART: Regular. ABDOMEN: Obese, soft, nontender. EXTREMITIES: The patient had 3+ edema in bilateral lower extremities with stasis dermatitis changes. Bilateral heels are intact, there is 1+ dorsalis pedis pulses. NEUROLOGIC: Cranial nerves 2-12 grossly intact. Motor and sensory grossly intact. LABORATORY DATA: White count 3.7, hemoglobin 8.4, BUN 30, creatinine 1.7, albumin 2.0. IMPRESSION: 1. Chronic bilateral lower extremity lymphedema with associated psoriasis. 2. Acute hypoxic respiratory failure with pneumonia. 3. Morbid obesity. 4. Generalized debility. 5. Severe protein calorie malnutrition, and albumin of 2.0. PLAN: We will ask OT to evaluate the patient for bilateral lower extremity wraps. I have this patient elevate his legs as much as possible. We will have PT, OT also evaluate the patient for his generalized debility and strengthening. We will make sure maximize the patient's oral protein supplementation for healing. I appreciate ability to consult. We will continue to follow the patient. By: [id number] Arturo Heck MD /nt
[2021-04-04 10:03] VITALS: BP 153/73
[2021-04-04 10:59] LABS: ABSOLUTE NEUTROPHILS 3.3 thou/uL (1.4-8.2); BASOPHILS 1.1 % (0.0-2.0); EOSINOPHILS 1.7 % (0.0-3.0); HEMATOCRIT 28.5 % (42.0-52.0); HEMOGLOBIN 8.9 gm/dL (14.0-18.0); MCH 25.1 pg (26.0-34.0); MCHC 31.1 g/dL (28.0-37.0); MCV 80.6 fL (80.0-100.0); PLATELET COUNT 108 thou/uL (150-400); POLYS 73.2 % (36.0-66.0); RBC 3.54 mil/uL (4.50-6.00); RDW 18.9 % (10.5-14.5); WBC 4.5 thou/uL (4.0-11.0)
[2021-04-04 11:15] LABS: ANION GAP 3 mmol/L (7-16); BUN 6 mg/dL (7-18); CALCIUM 8.2 mg/dL (8.5-10.1); CHLORIDE 99 mmol/L (98-107); CO2 34 mmol/L (21-32); CREATININE 0.9 mg/dL (0.7-1.3); GLUCOSE 101 mg/dL (74-106); POTASSIUM 4.5 mmol/L (3.5-5.1); SODIUM 136 mmol/L (136-145)
[2021-04-04 11:20] LABS: ALBUMIN 2.4 g/dL (3.4-5.0); SGOT 35 U/L (15-37); SGPT 18 U/L (30-65); TOTAL BILIRUBIN 1.8 mg/dL (0.2-1.0); TOTAL PROTEIN 8.2 g/dL (6.4-8.2); TROPONIN-I <0.06 ng/mL (<0.06)
--- NOTE | 2021-04-04 11:23 | EKG ---
[place] [address] [place] [address] ELECTROCARDIOGRAM REPORT Name: KITA BAKER Room #: PRE [facility]..#: [id number] Admission: Attend Phys: Discharge: Date of : 64 Report #: [id number] [facility] ED Test Date: 2021-04-04 Test Time: 10:48:22 Pat Name: KITA BAKER Department: Room: Gender: M Telecommunication Equipment Repairer: : 1960 Requested By: Mariusz Hare Order Number: [id number] MD: Ferny Hartman Measurements Intervals [place] Rate: 84 P: -6 ND: 182 QRS: 83 QRSD: 117 T: 11 QT: 395 QTc: 467 Interpretive Statements Sinus rhythm Incomplete right bundle branch block Low voltage, precordial leads Compared to ECG 10/09/2020 13:49:51 Incomplete right bundle-branch block now present Low QRS voltage now present Sinus tachycardia no longer present Electronically Signed On 04-04-2021 11:23:20 CDT by Ferny Hartman [email or web address] <ELECTRONICALLY SIGNED> By: Ferny Hartman MD, [facility] 04/04/21 1123 1048 1048 Ferny Hartman MD, FAC /EPI
[2021-04-04 11:40] LABS: ANISOCYTOSIS 1+; PLATELET ESTIMATE NORMAL
[2021-04-04 12:06] VITALS: BP 153/73
[2021-04-04 13:45] VITALS: BP 158/80
[2021-04-04] MEDS ORDERED: HYDROCORTISONE3011 TOP (14:44)
[2021-04-04] MEDS ORDERED: TRIAMCINOLONE A80 G2 TOP (14:45)
--- NOTE | 2021-04-04 15:14 | 2DMMODE ---
[facility] [place] [address] 2 D/M-MODE ECHOCARDIOGRAM Name: KITA BAKER Room #: 356-P ADM IN M.R.#: [id number] Admission: 04/04/21 Attend Phys: Estevan Dang MD Discharge: Date of : 64 Report #: [id number] THIS REPORT FOR: cc: FAM - Family physician unknown FAM - Family physician unknown Dae Dawn MD ~ APPROVED REPORT Study performed: 04/04/2021 14:17:27 EXAM: Comprehensive 2D, Doppler, and color-flow Echocardiogram Patient Location: ER Room #: 356 Status: routine BSA: 2.59 HR: 74 bpm BP: 158/80 mmHg Rhythm: NSR Other Information Study Quality: Adequate Indications Congestive Heart Failure Dyspnea 2D Dimensions IVSd: 10.69 (7-11mm) LVOT Diam: 25.31 (18-24mm) LVDd: 54.41 mm PWd: 10.54 (7-11mm) Ascending Ao: 39.45 (22-36mm) LVDs: 42.16 (25-40mm) Left Atrium: 52.08 (27-40mm) Aortic Root: 32.83 mm IVC: 15.00 mm Aortic Valve AoV Peak Jose.: 1.89 m/s AO Peak Gr.: 14.21 mmHg LVOT Max P.39 mmHg LVOT Max V: 1.45 m/s DELIO Vmax: 3.86 cm2 Mitral Valve E/A Ratio: 1.2 MV Decel. Time: 244.67 ms MV E Max Jose.: 1.21 m/s [facility] [address] [place] [address] 2 D/M-MODE ECHOCARDIOGRAM Name: KITA BAKER Room #: 356-P [facility] IN [facility].#: [id number] Admission: 04/04/21 Attend Phys: Estevan Dang MD Discharge: Date of : 64 Report #: [id number] MV A Jose.: 1.01 m/s MV PHT: 70.95 ms IVRT: 73.82 ms Pulmonary Valve PV Peak Jose.: 1.20 m/s PV Peak Gr.: 5.80 mmHg Pulmonary Vein P Vein S: 0.42 m/s P Vein A: 0.28 m/s P Vein D: 0.23 m/s P Vein A Dur.: 110.7 msec P Vein S/D Ratio: 1.83 Tricuspid Valve TR Peak Jose.: 2.61 m/s TR Peak Gr.: 27.29 mmHg PA Pressure: 32.00 mmHg Left Ventricle The left ventricle is normal size. There is normal left ventricular wall thickness. The left ventricular systolic function is normal. LVEF is 55-60%. The left ventricular diastolic function is normal. Right Ventricle The right ventricle is normal size. The right ventricular systolic function is normal. Atria The left atrium size is normal. The right atrium size is normal. Aortic Valve The aortic valve is normal in structure. No aortic regurgitation is present. There is no aortic valvular stenosis. Mitral Valve The mitral valve is normal in structure. There is no mitral valve regurgitation noted. No evidence of mitral valve stenosis. Tricuspid Valve The tricuspid valve is normal in structure. There is trace to mild tricuspid regurgitation. Estimated PAP 32mmHg. Pulmonic Valve The pulmonary valve is normal in structure. There is no pulmonic valvular regurgitation. [facility] [address] [place] [address] 2 D/M-MODE ECHOCARDIOGRAM Name: KITA BAKER Room #: 356-P ADM IN M.R.#: [id number] Admission: 04/04/21 Attend Phys: Estevan Dang MD Discharge: Date of : 64 Report #: [id number] Great Vessels The aortic root is normal in size. IVC is normal in size and collapses >50% with inspiration. Pericardium There is no pericardial effusion. <Conclusion> The left ventricle is normal size. There is normal left ventricular wall thickness. The left ventricular systolic function is normal. The right ventricle is normal size. The left atrium size is normal. The aortic valve is normal in structure. There is no mitral valve regurgitation noted. There is trace to mild tricuspid regurgitation. Estimated PAP 32mmHg. <ELECTRONICALLY SIGNED> By: Dae Dawn MD 04/04/21 1514 1514 1514 Dae Dawn MD /INF
--- NOTE | 2021-04-04 18:08 | NUR ---
ADMISSION: PT ARRIVED TO UNIT APPROX 1330. ACCOMPANIED BY SON. PT SATS AT 75% ON RM AIR. SATS AT 92% WITH 3L O2 AT TIME OF ARRIVAL. PT HAS PROFUSE ECZEMA OVER BODY. BACK CARE PROVIDED. BARRIER CREAM APPLIED TO BOTTOM. PT HAD BEEN SITTING IN HIS OWN URINE DOWN FROM ED, HE WAS UNABLE TO STAND TO USE THE TOILET. PT HAS BEEN USING URINAL W/O ISSUE SINCE ARRIVAL TO FLOOR. PT COMPLAINTS OF HEART HEALTHY DIET, REQUESTING TO BE CHANGED TO REGULAR, THIS RN INFORMED DR LAU. PT WILL NEED TO BE CLEARED FROM CARDIOLOGY PRIOR TO DIET CHANGE. PT SON HAS BROUGHT IN BBQ AND COOKIES FOR PT TO SNACK ON LATER. PT STATES HE CANNOT HAVE COVID VACCINE PER HIS ALLERGY MD. THIS RN ENCOURAGED PT TO REQUEST ALL VISITORS KEEP MASK ON WHILE IN ROOM. PT VERBALIZED UNDERSTANDING.
[2021-04-04 19:31] VITALS: BP 124/63
[2021-04-04 21:22] LABS: BE(vivo) 9.4 mmol/L (-2 to +3); HCO3 38.3 mmol/L (22.0-26.0); PCO2 83.1 mmHg (35.0-45.0); PO2 93.4 mmHg (80.0-100.0); pH 7.282 (7.360-7.450); sO2 95.8 % (92.0-98.0)
--- NOTE | 2021-04-04 21:49 | NUR ---
ABG RESULTS CALLED TO DARIN ACOSTA SHE ADVISED I NOTIFY . NOTIFIED ORDERED BIPAP AT HS AND PRN. RT NOTIFIED.
--- NOTE | 2021-04-05 02:44 | NUR ---
PROGRESS PT A/O X4 ON 3 LITERS O2 RESPIRATIONS QUIET AND EASY LUNG SOUNDS DIMINISHED IN ALL HERNANDEZ. ABG'S ABNORMAL CONTACTED ORDERED AUTO BIPAP OR BIPAP WITH RT SETTINGS. PT TOLERATING SO CONTINUOUS SAT MONITOR IN PLACE SATTING AT 100%. VOIDING PER URINAL. SKIN WITH DRY FLAKY PLAQUES NOTED FROM CHEST TO TOE PT HAS HISTORY OF ECZEMA AND PSORIASIS. NOT OOB THIS SHIFT. CONTINUE TO MONITOR
[2021-04-05 04:16] VITALS: BP 99/49
[2021-04-05 05:45] LABS: HEMOGLOBIN 8.8 gm/dL (14.0-18.0); MCH 24.9 pg (26.0-34.0); MCHC 30.4 g/dL (28.0-37.0); MCV 81.8 fL (80.0-100.0); RBC 3.54 mil/uL (4.50-6.00); WBC 4.7 thou/uL (4.0-11.0)
[2021-04-05 06:07] LABS: CALCIUM 8.1 mg/dL (8.5-10.1); POTASSIUM 4.3 mmol/L (3.5-5.1)
[2021-04-05 07:45] VITALS: BP 103/51
[2021-04-05 15:27] VITALS: BP 81/40
[2021-04-05 15:59] VITALS: BP 88/41
--- NOTE | 2021-04-05 16:33 | NUR ---
Pt REFUSING ANY ACUTE P.T. PRIOR TO D/C EXCEPT FOR P.T. SPECIALIST, ARIANA, TO EDUC ON RASHI/DOFFING LYMPHEDEMA WRAPS. REQUESTED FOR THIS ORDER TO BE PLACED SO ARIANA CAN DO SO. WILL D/T ACUTE P.T. AT THIS TIME D/T Pt'S REFUSAL.
[2021-04-05 16:50] VITALS: BP 108/40
--- NOTE | 2021-04-05 17:01 | NUR ---
ASSUMED PATIENT CARE AT 0700. A/O X. TOLERATED ON 3L/NC. UP WITH STANDBY. SOB WITH EXERTION. SLOWLY TOWARDS POC GOALS.
[2021-04-05 19:21] VITALS: BP 107/53
--- NOTE | 2021-04-06 04:02 | NUR ---
PROGRESS PT A/O X4 NOT OOB THIS SHIFT. LUNGS DIMINISHED AND PT HAS AN INFREQUENT PRODUCTIVE COUGH. ON 3 LITERS O2 VIA NC AND BIPAP AT HS TOLERATING WELL MAINTAINING SATS 93% AND ABOVE. VOIDING PER URINAL. LEGS REMAIN EDEMATOUS, LYMPHEDEMA CONSULT IN AM. DENIED PAIN AT START OF SHIFT BUT REPORTED FOOT PAIN AROUND 2 AM THAT WAS RELIEVED WITH REPOSITIONING. PLAN TO CONTINUE LASIX AND OBTAIN FLUID BALANCE. RT TX'S AND ABTS TO TREAT PNEUMONIA. TELE INTACT READING SR WITH RBBB.
[2021-04-06 06:57] LABS: HEMATOCRIT 26.7 % (42.0-52.0); HEMOGLOBIN 8.1 gm/dL (14.0-18.0); MCH 24.8 pg (26.0-34.0); MCHC 30.5 g/dL (28.0-37.0); MCV 81.6 fL (80.0-100.0); RBC 3.27 mil/uL (4.50-6.00); RDW 18.8 % (10.5-14.5); WBC 4.8 thou/uL (4.0-11.0)
[2021-04-06 07:11] LABS: CALCIUM 8.1 mg/dL (8.5-10.1); POTASSIUM 4.7 mmol/L (3.5-5.1)
[2021-04-06 07:13] LABS: CREATININE 2.6 mg/dL (0.7-1.3)
[2021-04-06 08:30] VITALS: BP 105/52
[2021-04-06 12:39] VITALS: BP 120/60
[2021-04-06 13:19] LABS: ALBUMIN 2.2 g/dL (3.4-5.0); CREATININE 2.6 mg/dL (0.7-1.3); MAGNESIUM 1.9 mg/dL (1.8-2.4); PHOSPHORUS 4.8 mg/dL (2.6-4.7); POTASSIUM 4.7 mmol/L (3.5-5.1)
[2021-04-06 13:58] LABS: URINE BLOOD NEGATIVE (Negative); URINE CLARITY CLOUDY; URINE COLOR YELLOW; URINE GLUCOSE-RANDOM* NEGATIVE (Negative); URINE KETONES TRACE (Negative); URINE LEUKOCYTES NEGATIVE (Negative); URINE NITRITE NEGATIVE (Negative); URINE PROTEIN (DIPSTICK) 2+ (Negative); URINE SPECIFIC GRAVITY 1.025 (1.005-1.035)
[2021-04-06 14:01] LABS: ICTOTEST (BILI CONFIRMATORY) Negative (Negative); URINE BILIRUBIN NEGATIVE (Negative)
[2021-04-06 14:18] LABS: PROT/CREAT RATIO 0.8; URINE CREATININE-RANDOM* 397.9 mg/dL; URINE PROTEIN-RANDOM* 333.5 mg/dL (<11.9)
[2021-04-06 14:34] LABS: HYALINE CASTS 0-3 Few /LPF (None Seen); SQUAMOUS 0-3 Few /LPF (0-3); URINE WBC 1-5 Rare /HPF (NONE SEEN)
[2021-04-06 14:35] LABS: BACTERIA 1-9 Few /HPF (None Seen); URINE RBC None Seen /HPF (NONE SEEN)
[2021-04-06 14:36] LABS: AMORPHOUS URATES Moderate /LPF (None Seen)
[2021-04-06 15:12] LABS: % SATURATION 17 % (20-39); IRON 45 ug/dL (65-175); TIBC 271 ug/dL (250-450)
[2021-04-06 15:38] LABS: FOLIC ACID 11.1 ng/mL (8.6-58.9)
--- NOTE | 2021-04-06 15:44 | NUR ---
SW attempted to meet w/ pt and contact NOK several times on this day. SW unsuccessful and due to NOK VM being full, no VM left. Pt admitted for hypoxia, pneumonia, AMS. Pt currently on isolation precautions. Chart review completed NOK: Denton Thompson [phone] PCP: Unknown Insurance: [employer] ADLs: Independent prior to admission DME: Cane Pt has refused to work w/ therapies. SW will follow for reccomendations and to complete assessment. W/U in progress
[2021-04-06 16:20] VITALS: BP 126/62
--- NOTE | 2021-04-06 18:26 | NUR ---
ASSUMED PATIENT CARE AT 0700. A/0X4. LETHARGIC. OFF BIPAP AT 0900 AND PUT IT BACK AT 1745 DUE TO PATIENT NOT GOING TO EAT DINER AND LETHARGIC SLEEP. VSS. GENERLIZED EDEMA. MAX ASSIST. NOT TOWARDS TO POC.
[2021-04-06 19:43] VITALS: BP 137/50
--- NOTE | 2021-04-07 05:36 | NUR ---
PROGRESS PT A/O X4 BUT VERY LETHARGIC ON BIPAP SLEEPING MOST OF SHIFT. NO URINE OUTPUT NOTED PC TO BAMBI ACOSTA DISCUSSED PT'S RENAL STATUS AND SCANT URINARY OUTPUT ORDER TO PLACE SMITH OBTAINED. DIFFICULTY INSERTING COUDE CATHETER OBTAINED 12 CAMEROONIAN CATHETER PLACED WITH RETURN OF 350 CC'S OF DARK [place] URINE. ON BIPAP TOLERATING WELL MOST OF SHIFT, CONTINUOUS PULSE OX WITH READING FROM 96 TO 100%. IVF'S INFUSING ORDERED. PT GIVEN A BED BATH SKIN WITH DRIED RAISED FLAKY PLAQUES AND ERYTHEMA PT HAS HX OF ECZEMA AND PSORIASIS.
[2021-04-07 07:25] VITALS: BP 110/40
[2021-04-07 08:40] VITALS: BP 98/52
[2021-04-07 09:01] VITALS: BP 118/54
--- NOTE | 2021-04-07 09:58 | NUR ---
WOUND CONSULT; THE LE'S WERE ASSESSED. A LARGE MAN WHO SEEMS SLOW TO ANSWER OR IS CONFUSED. THE LE'S HAVE SKIN CHANGES CONSISTANT WITH A VENOUS ETIOLGY . UNABLE TO ASSESS ASSESS WHEN THIS FIRST PRESENTED. HOSPITALIST CALLS IT PSORIASIS. EDEMA, RAISED AREAS. INFECTIOUS? LEAVE WASTE MACHINE TENDER FOR NOW. RECOMMENDATIONS: CONSULT WOUND CARE PHYSICIAN
[2021-04-07 10:19] LABS: BE(vivo) 2.9 mmol/L (-2 to +3); HCO3 30.9 mmol/L (22.0-26.0); PO2 77.3 mmHg (80.0-100.0); sO2 93.3 % (92.0-98.0)
[2021-04-07 10:20] LABS: PCO2 68.1 mmHg (35.0-45.0); pH 7.274 (7.360-7.450)
[2021-04-07 11:27] VITALS: BP 142/117
[2021-04-07 11:48] LABS: URINE BILIRUBIN NEGATIVE (Negative); URINE BLOOD 2+ (Negative); URINE CLARITY CLEAR; URINE COLOR YELLOW; URINE GLUCOSE-RANDOM* NEGATIVE (Negative); URINE KETONES NEGATIVE (Negative); URINE NITRITE-REFLEX NEGATIVE (Negative); URINE PROTEIN (DIPSTICK) TRACE (Negative); URINE SPECIFIC GRAVITY >= 1.030 (1.005-1.035)
[2021-04-07 11:49] LABS: URINE LEUKOCYTES-REFLEX 1+ (Negative)
[2021-04-07 12:10] LABS: HEMATOCRIT 27.6 % (42.0-52.0); HEMOGLOBIN 8.4 gm/dL (14.0-18.0); MCHC 30.5 g/dL (28.0-37.0); RBC 3.37 mil/uL (4.50-6.00); WBC 3.7 thou/uL (4.0-11.0)
[2021-04-07 12:15] LABS: CREATININE 2.3 mg/dL (0.7-1.3); MAGNESIUM 2.1 mg/dL (1.8-2.4); POTASSIUM 4.6 mmol/L (3.5-5.1)
[2021-04-07 13:07] LABS: HYALINE CASTS >10 Many /LPF (None Seen)
[2021-04-07 13:08] LABS: SQUAMOUS None Seen /LPF (0-3)
--- NOTE | 2021-04-07 13:19 | NUR ---
SIVAN reviewed chart and spoke with nursing and attending physician. Pt was on 3L via NC earlier today and has been placed on continuous bipap. Pt is on IV abx. SIVAN met with pt and son, Colt, at bedside. Pt on bipap and was reported to be lethargic this morning. Pt lives at home alone. Pt does not have O2 or bipap machine at home. Pt was unable to answer SW's questions, but was able to nod "yes" to being in the hospital. Pt was unable to state what hospital he is in. Per pt's son, pt did not recognize him when he arrived this morning. Cardiology and pulmonology evaluated pt shortly after SW visit. Pt remains on continuous bipap at this time. SIVAN is following to assist as needed with discharge planning.
[2021-04-07 13:24] LABS: CRYSTALS None Seen /LPF (None Seen)
[2021-04-07 15:18] VITALS: BP 98/52
[2021-04-07 16:25] LABS: BE(vivo) 6.1 mmol/L (-2 to +3); PCO2 59.8 mmHg (35.0-45.0); PO2 80.5 mmHg (80.0-100.0); sO2 95.2 % (92.0-98.0)
--- NOTE | 2021-04-07 17:37 | NUR ---
RN ASSUMED PT'S CARE AT 0700AM, PT KNOWS HIS NAME AND DAY, PT IS CONFUSED AT TIME, PT'S GENERAL EDEMA IS GETTING WORSE, RN HAS REPORTED TO DR ABOUT PT'S CHANGING, NEW ABG ORDER, PT STARTS BIPAP WITH O2 35% PER ABG RESULTS, PT'S FAMILY HAS UPDATED, PT'S NEEDS HELP ADL AND CHNAGE POSITION, WOUND DR HAS SEEING PT'S BLE ( RED), NO NEW ORDER AT THIS TIME, PT IS CONTINUING BIPAP WITH O2 30% TO KEEP O2SAT >92%, PT IS SLEEPING AT MOST OF TIME,
[2021-04-07 20:18] VITALS: BP 104/53
[2021-04-08 02:48] LABS: HEMOGLOBIN 8.1 gm/dL (14.0-18.0); MCHC 31.1 g/dL (28.0-37.0); MCV 80.4 fL (80.0-100.0); RBC 3.23 mil/uL (4.50-6.00); RDW 18.3 % (10.5-14.5); WBC 3.6 thou/uL (4.0-11.0)
[2021-04-08 03:06] LABS: CALCIUM 7.9 mg/dL (8.5-10.1); CREATININE 1.7 mg/dL (0.7-1.3); MAGNESIUM 2.1 mg/dL (1.8-2.4); PHOSPHORUS 3.9 mg/dL (2.5-4.9); POTASSIUM 4.5 mmol/L (3.5-5.1)
[2021-04-08 04:15] VITALS: BP 109/53
--- NOTE | 2021-04-08 07:18 | NUR ---
Received pt. on a BIPAP with FIO2 at 30%. O2 sat has been in the upper 90's. He slept well during he night and kept BIPAP on. He is more alert and awake this am. Repositioned for comfort. Denies any concern at this time.
[2021-04-08 07:51] VITALS: BP 104/42
[2021-04-08 11:18] LABS: HCO3 30.1 mmol/L (22.0-26.0); PCO2 47.4 mmHg (35.0-45.0); PO2 76.7 mmHg (80.0-100.0); pH 7.421 (7.360-7.450); sO2 95.5 % (92.0-98.0)
[2021-04-08 11:42] VITALS: BP 108/47
--- NOTE | 2021-04-08 13:53 | NUR ---
SIVAN reviewed chart and spoke with nursing and attending physician. ID consult ordered today. Head CT ordered. Pt on O2 via NC. No weekend discharge planned. Pt remains on IV abx. Therapy working with pt to assist with recommendations for discharge. OT/lymphedema therapy ordered. Pt had refused PT eval on 04/05. SIVAN is following to assist as needed with discharge planning.
[2021-04-08 15:17] VITALS: BP 113/48
[2021-04-08 19:16] VITALS: BP 127/57
--- NOTE | 2021-04-08 19:49 | NUR ---
RN ASSUMED PT'S CARE AT 0700-1900PM, PT 'S CONFUSED AND SOB HAVE IMPROVED, PT IS A&OX3 ( PERSON , TIME AND PLACE), PT IS OFF BIPAP AND O2 1-2 L /MIN/NC AT MOST OT TIME, PT HAS ID DR CONSULT, AND PT STARTS RECEIVING NEW IV ABX, RN HAS CALLED DR TO REPORT PT'S BLE EDEMA AND PAIN , NEW ORDER US BLE TO R/O DVT, PT'S HEAD CT SCAN HAS DONE, PT'S SON STAYS AT PT'S BEDSIDE.
--- NOTE | 2021-04-08 22:45 | NUR ---
PT RESTING AND SLEEPING IN BED. O2 PER NC. BIPAP HS. OBESE, DIMINSIHED LUNGS. PSORIASIS PATCHES ALL OVER BODY. FIRM EDEMATOUS SKIN BLE, ABD. SMITH TO DD. PT ALERT TO SELF AND SITUATION AND PLACE, NOT TIME. FAMILY VISITED. PT INCONTINENT OF STOOL. PT ASSISTS POORLY WITH TURNING OR LIFTING BLE. LLE WRAP WITH YVONNE, RLE WRAP WITH KERLIX. PT REFUSED US OF RLE, US WILL HAVE DAY NURSE CALL IN AM TO REATTEMPT. WILL HAVE DAY NURSE ASK FOR BARRIATRIC BED IF PT NOT DCD TO HOME. BED ALARM ON.
[2021-04-09 03:00] VITALS: BP 136/59
[2021-04-09 07:14] VITALS: BP 110/49
--- NOTE | 2021-04-09 07:58 | HC ---
[facility] [place] [address] [place] [address] CONSULTATION Name: KITA BAKER Room #: 363-P ADM IN M.R.#: [id number] Admission: 04/04/21 Attend Phys: Estevan Dang MD Discharge: Date of : 64 Report #: [id number] THIS REPORT FOR: cc: FAM - Family physician unknown FAM - Family physician unknown Horacio Njaera MD ~ DATE OF SERVICE: 04/08/2021 INFECTIOUS DISEASE CONSULTATION ATTENDING PHYSICIAN: Dr. Dang REASON FOR EVALUATION: Encephalopathy, evaluation for possible occult infection. HISTORY OF PRESENT ILLNESS: Chart reviewed. The patient examined. This is a 60-year-old gentleman who is morbidly obese with extensive medical history given his age, acute issues with respiratory failure, otherwise has underlying pulmonary compromise. Also, has cardiomyopathy, admitted through the Emergency Room with complaints of progressive dyspnea. This was preceded by productive cough 3-4 days ago, it progressed at subacute basis. He did have a recorded temperature elevations to 101 as well. There were some concerns about his tenuous situation. He was admitted. Blood and urine cultures otherwise unrevealing thus far. Chest x-ray initially showed cardiomegaly, pulmonary venous congestion, patchy right basilar infiltrate, so empirically started on combination therapy with azithromycin, ceftriaxone. Apparently he had a difficult day yesterday. He was quite confused, although today he is much improved. He had been given some supportive oxygen, now decreased to 1 liter per nasal cannula, was diuresed. He states he was aware of his confusion and has clinically improved. He is, however, noting some difficulty with coming up with words, which he states has been somewhat prominent more recently, although he has had this in the past. ALLERGIES: None known. MEDICATIONS: Include furosemide, ferrous sulfate, azithromycin, ceftriaxone, p.r.n. ondansetron. PAST MEDICAL HISTORY: As described above, chronic respiratory failure, cardiomyopathy, history of congestive heart failure, chronic lymphedema of the lower extremities, chronic anemia, morbid obesity, psoriasis, history of COVID in 09/2020. SOCIAL HISTORY: Nonsmoker, no ethanol, no illicit drug use. FAMILY HISTORY: Noncontributory. [facility] [address] [place] [address] CONSULTATION Name: KITA BAKER Room #: 363-P [facility] IN M.R.#: [id number] Admission: 04/04/21 Attend Phys: Estevan Dang MD Discharge: Date of : 64 Report #: [id number] REVIEW OF SYSTEMS: Otherwise, denies significant abdominal related complaints. His appetite has been satisfactory. PHYSICAL EXAMINATION: GENERAL: He is morbidly obese. He is alert, cooperative. He does have some difficulty recalling words. VITAL SIGNS: Temperature 98.2, pulse 72, respirations 17, blood pressure is 108/47. SKIN: Warm, dry. HEENT: Normocephalic. Extraocular muscles intact. Nasal cannula in place. NECK: Thick. LUNGS: Diminished breath sounds. HEART: Distant, appears regular. I do not appreciate a murmur. ABDOMEN: Obese, large pannus, somewhat firm, no apparent peritoneal signs. GENITOURINARY AND RECTAL: Deferred. EXTREMITIES: Lower extremities have compressive dressings, confirming lymphedema. LABORATORY DATA: ABGs; pH 7.274, pCO2 of 68.1, pO2 of 77.3 on 3 liters. Chest x-ray showed interstitial and alveolar infiltrates. Electrolytes: Sodium 136, potassium 4.5, chloride 101, bicarbonate is 33, anion gap of 2, BUN and creatinine 30 and 1.7, albumin 2.0. CBC: White count 3.6, H and H 8.1 and 26.0, platelet count of 75. Urinalysis, 16-25 white cells. ASSESSMENT AND PLAN: 1. Encephalopathy, likely multifactorial, although we certainly can exclude an intercurrent infection as one manifestation and perhaps urinary tract, cultures in progress. 2. Acute on chronic respiratory failure with hypercarbia. This could certainly contribute as well. He remains quite tenuous at this point. 3. Post-COVID encephalopathy is a possibility as well. We will adjust antimicrobial therapy pending further results. At this point, he states he has improved over the last 24 hours and incentive spirometry. Continue to monitor expectantly. <ELECTRONICALLY SIGNED> By: Horacio Najera MD 04/09/21 [id number] Horacio Najera MD /nt
[2021-04-09 09:09] LABS: HEMATOCRIT 26.7 % (42.0-52.0); HEMOGLOBIN 8.3 gm/dL (14.0-18.0); MCH 25.2 pg (26.0-34.0); MCHC 31.2 g/dL (28.0-37.0); MCV 80.7 fL (80.0-100.0); RBC 3.31 mil/uL (4.50-6.00); RDW 18.8 % (10.5-14.5); WBC 4.1 thou/uL (4.0-11.0)
[2021-04-09 09:21] LABS: ALBUMIN 2.1 g/dL (3.4-5.0); ANION GAP < 0 mmol/L (7-16); BUN 24 mg/dL (7-18); CALCIUM 8.3 mg/dL (8.5-10.1); CHLORIDE 105 mmol/L (98-107); CO2 38 mmol/L (21-32); CREATININE 1.3 mg/dL (0.7-1.3); GLUCOSE 85 mg/dL (74-106); PHOSPHORUS 2.6 mg/dL (2.6-4.7); POTASSIUM 4.4 mmol/L (3.5-5.1); SODIUM 141 mmol/L (136-145)
--- NOTE | 2021-04-09 11:05 | NUR ---
ASSUMED PT CARE AT SHIFT CHANGE, PT A&O THIS MORNING, STATES SLEEP WAS OK. PT FAMILY MEMBER IN ROOM, PT EATING FRESH FRUIT. THIS RN PROVIDED ESTRELLA CARE AFTER US, REAPPLIED STAT LOCK. PT TOLERATED ESTRELLA CARE WELL. PT REPORTED SLIGHT HEADACHE, PRN TYELENOL PROVIDED, MILD IMPROVEMENT. NO OTHER CONCERNS OR COMPLAINTS AT THIS TIME.
[2021-04-09 11:53] VITALS: BP 116/50
--- NOTE | 2021-04-09 17:05 | NUR ---
PT LEGS RE-WRAPPED. PT TOLERATED WELL.
[2021-04-09 17:19] VITALS: BP 106/50
[2021-04-09 20:30] VITALS: BP 118/54
--- NOTE | 2021-04-10 01:53 | NUR ---
PT SLEEPING IN BED, EASILIY AROUSED. O2 PER NC, BIPAP AT HS. LUNGS DIMINSIHED. OBESE, CONTINUOUS PULSE OX. SMITH TO DD. BED ALARM ON. EDEMA FIRM BLE AND ABD.
[2021-04-10 03:48] LABS: HEMATOCRIT 27.7 % (42.0-52.0); HEMOGLOBIN 8.5 gm/dL (14.0-18.0); MCH 24.8 pg (26.0-34.0); MCHC 30.6 g/dL (28.0-37.0); MCV 81.1 fL (80.0-100.0); RBC 3.42 mil/uL (4.50-6.00); RDW 19.3 % (10.5-14.5); WBC 3.4 thou/uL (4.0-11.0)
[2021-04-10 03:55] LABS: ALBUMIN 2.2 g/dL (3.4-5.0); CALCIUM 8.3 mg/dL (8.5-10.1); CREATININE 1.2 mg/dL (0.7-1.3); PHOSPHORUS 2.8 mg/dL (2.5-4.9); POTASSIUM 4.1 mmol/L (3.5-5.1)
[2021-04-10 03:58] VITALS: BP 133/64
[2021-04-10 03:58] LABS: CALCIUM 8.6 mg/dL (8.5-10.1); CREATININE 1.1 mg/dL (0.7-1.3); MAGNESIUM 2.1 mg/dL (1.8-2.4); POTASSIUM 4.1 mmol/L (3.5-5.1)
[2021-04-10 07:21] VITALS: BP 131/59
[2021-04-10 10:58] VITALS: BP 156/82
[2021-04-10 19:19] VITALS: BP 123/57
--- NOTE | 2021-04-10 22:47 | NUR ---
PT ALERT AND ORIENTED X4 WITH PREIODSOF CONFUSION AND FORGETFULNESS. VSS AFEBRILE. UNLABORED ON 1LNC. BED CHANGED BATH COMPLETED. NYSTAIN APPLIED TO SKIN FOLDS. ZGARDAND MOISTRE BARRIER APPLIED. LE WRAPS INTACT. NO C/O PAIN. NO S/S DISTRESS.
--- NOTE | 2021-04-11 03:21 | NUR ---
PT SLEEPING WITH BIPAPON. NO C/O PAIN OR SOA ON BIPAP PRESENTLY.
[2021-04-11 04:23] VITALS: BP 131/59
[2021-04-11 05:40] LABS: HEMATOCRIT 28.5 % (42.0-52.0); HEMOGLOBIN 8.7 gm/dL (14.0-18.0); MCHC 30.4 g/dL (28.0-37.0); MCV 82.1 fL (80.0-100.0); RBC 3.47 mil/uL (4.50-6.00); RDW 19.7 % (10.5-14.5); WBC 3.2 thou/uL (4.0-11.0)
[2021-04-11 06:10] LABS: ALBUMIN 2.2 g/dL (3.4-5.0); CALCIUM 8.7 mg/dL (8.5-10.1); PHOSPHORUS 2.9 mg/dL (2.5-4.9)
--- NOTE | 2021-04-11 06:45 | NUR ---
PT PROGRESSING SLOWLY TOWARDS D/C GOALS. ENCOURAGED 200 ML FLUID RESTRICTION. VSS. AFEBRILE THIS AM. PT WANTED BIPAP OFF EARLY THIS AM SO HE COULD EAT BREAKFAST. EXPLAINED TO PT THAT TRAYS COME AT 8 AM . PT MILDLY CONFUSED HE INSISTED TRAYS COME AT 6AM AND WANTED BIPAP OFF. REESPIRATONS UNLABORED PRESENTLY ON 1LNC.
[2021-04-11 08:09] VITALS: BP 150/68
[2021-04-11 11:00] VITALS: BP 135/59
--- NOTE | 2021-04-11 15:13 | NUR ---
SIVAN reviewed chart and spoke with nursing and attending physician. Pt on 1L of O2. Pt is on IV abx and IV lasix. SIVAN met with pt at bedside to discuss discharge plan. Pt is alert/orientated. Pt states that his son, Colt, requests a referral to be sent to [facility] for review. Pt is agreeable with post-acute placement if recommended. Will need a new PT eval. Insurance authorization needed for post-acute placement. SIVAN spoke with pt's son, Colt, via phone to provide update. SIVAN faxed SNF referral to [facility] and spoke with Lulu in admissions to notify of new referral. SIVAN will fax PT eval and updates tomorrow. SW requested PT eval. SW is following to assist as needed with discharge planning.
[2021-04-11 15:16] VITALS: BP 150/71
[2021-04-11 19:24] VITALS: BP 129/54
--- NOTE | 2021-04-11 19:41 | NUR ---
RN ASSUMED PT'S CARE AT 0700-1900PM, PT IS A&OX4, PT IS ON O2 1L/MIN/NC, PT IS CONTINUING IV ABX AND LASIX 60MG IV BID, PT'S SOB AND EDEMA HAVE IMPROVED. PT DENIES PAIN AT DAY SHIFT.
--- NOTE | 2021-04-11 21:56 | NUR ---
PT RESTING QUIETLY WATCHING [email or web address]. VSS AFEBRILE. NO C/O PAIN. LUNGS DIMINISHED BUT UNLABORED ON 1LNC. LASIX 60 MG GIVEN ORDERED. SMITH DRAINING CLEAR YELLOW URINE.
[2021-04-12 03:56] VITALS: BP 136/669
--- NOTE | 2021-04-12 05:39 | NUR ---
PT PROGRESSING TOWARDS D/C GOALS. VSS. AFEBRILE. UNLABORED ON BIPAP 30% FIO2. ENCOURAGING PT TO MOVE AROUND IN BED MUCH POSSIBLE AND HELP LIFT SELF UP IN BED AND RAISE HEAD UP AND DOWN. HE IS REFUSING TO TURN ON SIDES. NYSTATIN APPLIED TO ALL SKIN FOLDS. NO CHANGES IN ASSESSMENT THIS MORNING.
[2021-04-12 07:26] VITALS: BP 145/58
[2021-04-12 11:21] LABS: HEMATOCRIT 28.5 % (42.0-52.0); HEMOGLOBIN 8.9 gm/dL (14.0-18.0); MCH 25.5 pg (26.0-34.0); MCHC 31.1 g/dL (28.0-37.0); MCV 81.8 fL (80.0-100.0); RBC 3.48 mil/uL (4.50-6.00); RDW 19.5 % (10.5-14.5); WBC 4.6 thou/uL (4.0-11.0)
[2021-04-12 11:30] LABS: BUN 9 mg/dL (7-18); CALCIUM 8.9 mg/dL (8.5-10.1); CHLORIDE 100 mmol/L (98-107); CREATININE 1.1 mg/dL (0.7-1.3); GLUCOSE 114 mg/dL (74-106); MAGNESIUM 1.3 mg/dL (1.8-2.4); SODIUM 142 mmol/L (136-145)
[2021-04-12 11:32] LABS: CO2 > 45 mmol/L (21-32)
[2021-04-12 12:03] VITALS: BP 149/68
--- NOTE | 2021-04-12 13:04 | NUR ---
SW reviewed chart and spoke with nursing and attending physician. Pt is progressing towards goals for discharge. Discharge is anticipate in 1-2 days. Pt is on 1L of O2 and on IV abx and IV lasix. SW spoke with pt via phone to discuss discharge plan. Pt states he would prefer to d/c home with HH instead of going to a SNF. Pt states he does not want to be in a SNF for at least a week. SW discussed need for HH and possible home O2. Pt verbalized understanding. SW confirmed pt's home address and phone number. Pt requested SW discuss HH and DME providers with his son, Colt. SW contacted Colt to discuss options. No preference voiced. SIVAN faxed referrals to [facility] for review. Pt will need a rest/exercise oximetry to determine home O2 needs. Awaiting input from HH/DME providers at this time. SIVAN is following to assist as needed with discharge planning.
[2021-04-12 15:27] VITALS: BP 154/58
[2021-04-12 19:22] VITALS: BP 123/48
[2021-04-13 02:43] LABS: HEMATOCRIT 26.8 % (42.0-52.0); HEMOGLOBIN 8.4 gm/dL (14.0-18.0); MCH 25.8 pg (26.0-34.0); MCHC 31.2 g/dL (28.0-37.0); MCV 82.6 fL (80.0-100.0); RBC 3.25 mil/uL (4.50-6.00); RDW 19.8 % (10.5-14.5); WBC 3.6 thou/uL (4.0-11.0)
[2021-04-13 03:36] LABS: ANION GAP < 0 mmol/L (7-16); BUN 8 mg/dL (7-18); CALCIUM 8.4 mg/dL (8.5-10.1); CHLORIDE 99 mmol/L (98-107); CO2 42 mmol/L (21-32); CREATININE 1.1 mg/dL (0.7-1.3); GLUCOSE 121 mg/dL (74-106); MAGNESIUM 1.4 mg/dL (1.8-2.4); POTASSIUM 3.2 mmol/L (3.5-5.1); SODIUM 140 mmol/L (136-145)
[2021-04-13 05:58] VITALS: BP 122/53
--- NOTE | 2021-04-13 06:53 | NUR ---
RESTED WELL THROUGH THE NIGHT, WITH HIS BIPAP. COMPLAINS THAT HIS RT THIGH IS VERY IRRITABLE AND ITCHY. HIS PRESRICBED CREAM HELPS. HE IS AWARE OF THE PLAN TO D/C TO [facility].
[2021-04-13 07:32] VITALS: BP 106/54
--- NOTE | 2021-04-13 08:41 | NUR ---
Nutrition: Assessed for LOS. Dx: multifactorial encephalopathy, UTI, CHF, lymphedema, hx of COVID. Class III morbid obesity noted, wt change of <2% from admit, wt up from September admit. K 3.2, CO2 42, albumin 2.2. Last BM 04/08. Lasix and other meds reviewed. Started on low Na diet Sunday w/ fluid restriction. O>I past few days. Intake avg 72%. Physicain noted protein calorie malnutrition, defer dx. Plan is for discharge to home very soon. Does not appear at significant nutrition risk at this time.
[2021-04-13 11:22] VITALS: BP 130/48
[2021-04-13 12:37] VITALS: BP 130/48
[2021-04-13] MEDS ORDERED: AMOX TR-K CLV1 EAC4 PO (14:23)
[2021-04-13] MEDS ORDERED: IRON325 PO (14:23)
[2021-04-13] MEDS ORDERED: MINOCYCLINE 5050 M1 PO (14:23)
[2021-04-13] MEDS ORDERED: TORSEMIDE20 MG PO (14:28)
[2021-04-13] MEDS ORDERED: POTASSIUM20 PO (14:28)
--- NOTE | 2021-04-13 15:02 | NUR ---
DISCHARGE NOTE: SIVAN reviewed chart and spoke with nursing and attending physician. Pt is medically stable for discharge today. SIVAN spoke with pt's son, Colt, who states that pt and family are agreeable with pt discharging home with HH/Home O2. Pt will be staying at Colt's home ([address] [place] within [facility] [address]). [facility] is able to accept pt on service and has contacted pt's insurance for authorization. Per HH liaison, pt's insurance will cover services for 30 days. Rest/exercise oximetry completed. Pt requires 3L of continuous O2. SIVAN updated pt's son, who has contacted a [employer] to provide a concentrator for the home. SIVAN provided pt's nurse with [facility] and information regarding private duty care. Also provided pt with script for O2. Pt's son arranged w/c transportation home around 1700 through [employer]. SIVAN spoke with pt via phone to provide update and discuss discharge plan. Pt is aware and in agreement with plan. Contact info for HH placed in pt's discharge summary. HH liaison did meet with pt and has contacted the SW for assistance with coordinating private duty care. SIVAN faxed discharge ppwk to and notified HH liaison. SIVAN updated pt's nurse regarding transportation. No additional SW needs identified at this time, but is available to assist should needs arise.
[2021-04-13 15:42] VITALS: BP 103/64
--- NOTE | 2021-04-13 17:29 | NUR ---
DC PAPERWORK DISCUSSED WITH PATIENT. IV REMOVED FROM RIGHT UPPER ARM, NO COMPLICATIONS NOTED. PATIENT URINATED POST CATHETER REMOVAL WITHOUT COMPLICATION. PATIENT PICKED UP BY FAMILY PROVIDED TRANSPORT VIA [employer]EL [employer] VAN WITH 3L O2 NC. PATIENT WAS ABLE TO AMBULATE X1 ASSIST WITH CANE. PATIENT DC A/O X3.
--- NOTE | 2021-04-14 14:27 | NUR ---
SW received call from pt regarding follow up appt scheduled for Sunday, 04/15 at 1300 with the sleep lab. Pt states he called the sleep lab and they do not have any info. SW had three-way conversation with sleep lab, and it was an outpatient sleep study clinic, that does not have the ability to do an overnight sleep study. SW and pt called the [facility] outpatient sleep lab and no appts have been scheduled for pt. SIVAN spoke with Dr. Riki Bowen's nurse, who states she will assist with arranging an outpatient sleep study after pt has a follow up appt. SIVAN spoke with scheduling. Riki Cuadra has one appt available next week: April 20 at 1320. SIVAN spoke with pt to provide info and obtained pt's email address for new pt forms to be sent for completion. SIVAN called Arturo in scheduling to provide email address. No additional SW needs identified at this time, but is available to assist should needs arise.
== END 2021-04-13 17:39 | disposition home health service (06) | DRG 291 ==
LOC: ER 09:52 → EROBS 12:01 → 3W 12:01
PROVIDERS: Emergency Medicine; Internal Medicine; Internal Medicine Nephrology; Internal Medicine Pulmonary Disease; ADMIT Hospitalist; ATTEND Hospitalist
PROC: 5A09357 Assistance with Respiratory Ventilation, Less than 24 Consecutive Hours, Continuous Positive Airway Pressure (ICD-10-PCS; principal; 2021-04-05)
PROC: 5A09357 Assistance with Respiratory Ventilation, Less than 24 Consecutive Hours, Continuous Positive Airway Pressure (ICD-10-PCS; 2021-04-06)
PROC: 5A09357 Assistance with Respiratory Ventilation, Less than 24 Consecutive Hours, Continuous Positive Airway Pressure (ICD-10-PCS; 2021-04-07)
PROC: 5A09357 Assistance with Respiratory Ventilation, Less than 24 Consecutive Hours, Continuous Positive Airway Pressure (ICD-10-PCS; 2021-04-08)
PROC: 5A09357 Assistance with Respiratory Ventilation, Less than 24 Consecutive Hours, Continuous Positive Airway Pressure (ICD-10-PCS; 2021-04-09)
PROC: 5A09357 Assistance with Respiratory Ventilation, Less than 24 Consecutive Hours, Continuous Positive Airway Pressure (ICD-10-PCS; 2021-04-10)
PROC: 5A09357 Assistance with Respiratory Ventilation, Less than 24 Consecutive Hours, Continuous Positive Airway Pressure (ICD-10-PCS; 2021-04-11)
PROC: 5A09357 Assistance with Respiratory Ventilation, Less than 24 Consecutive Hours, Continuous Positive Airway Pressure (ICD-10-PCS; 2021-04-12)
PROC: 5A09357 Assistance with Respiratory Ventilation, Less than 24 Consecutive Hours, Continuous Positive Airway Pressure (ICD-10-PCS; 2021-04-13)
DX: I13.0 Hypertensive heart and chronic kidney disease with heart failure and stage 1 through stage 4 chronic kidney disease, or unspecified chronic kidney disease (principal); J18.9 Pneumonia, unspecified organism; E43 Unspecified severe protein-calorie malnutrition; J96.21 Acute and chronic respiratory failure with hypoxia; J96.22 Acute and chronic respiratory failure with hypercapnia; I50.33 Acute on chronic diastolic (congestive) heart failure; G93.40 Encephalopathy, unspecified; N17.9 Acute kidney failure, unspecified; Z68.44 Body mass index [BMI] 60.0-69.9, adult; I89.0 Lymphedema, not elsewhere classified; L40.9 Psoriasis, unspecified; E66.01 Morbid (severe) obesity due to excess calories; R53.81 Other malaise; I25.10 Atherosclerotic heart disease of native coronary artery without angina pectoris; D64.9 Anemia, unspecified; D69.6 Thrombocytopenia, unspecified; N18.9 Chronic kidney disease, unspecified; R41.0 Disorientation, unspecified; G47.33 Obstructive sleep apnea (adult) (pediatric); Z20.822 Contact with and (suspected) exposure to COVID-19; Z82.49 Family history of ischemic heart disease and other diseases of the circulatory system; Z86.16 Personal history of COVID-19; Z90.49 Acquired absence of other specified parts of digestive tract; Z79.899 Other long term (current) drug therapy
CPT/HCPCS: 10879

== ENCOUNTER → 2021-05-10 | Outpatient (CLI) | payer OTHER ==
[~2021-05-10] MED LIST changes: +AMOX TR-K CLV1 EAC4 PO; +HYDROCORTISONE3011 TOP; +IRON325 PO; +MINOCYCLINE 5050 M1 PO; +POTASSIUM20 PO; +TORSEMIDE20 MG PO; +TRIAMCINOLONE A80 G2 TOP
== END ==
LOC: CAT 12:47
PROVIDERS: ATTEND Internal Medicine Cardiovascular Disease
DX: Z13.6 Encounter for screening for cardiovascular disorders (principal); I25.10 Atherosclerotic heart disease of native coronary artery without angina pectoris; E78.00 Pure hypercholesterolemia, unspecified

== ENCOUNTER → 2021-07-07 | Outpatient (CLI) | payer OTHER | LOC: SJCVCIMAG 08:02 | PROVIDERS: ATTEND Internal Medicine Cardiovascular Disease | DX: I49.3 Ventricular premature depolarization (principal); I45.19 Other right bundle-branch block; I25.10 Atherosclerotic heart disease of native coronary artery without angina pectoris; R06.00 Dyspnea, unspecified; E66.9 Obesity, unspecified; I50.9 Heart failure, unspecified; Z79.899 Other long term (current) drug therapy ==